=== PATIENT | male | born 1970 | race Caucasian/White ===

== ENCOUNTER 2023-11-22 15:06 | Outpatient (CLI) | payer OTHER | END 2023-11-22 15:07 | disposition home or self-care (01) | LOC: CSHMRI 15:06 | PROVIDERS: ATTEND Physician Assistant | DX: M25.522 Pain in left elbow (principal); S46.212A Strain of muscle, fascia and tendon of other parts of biceps, left arm, initial encounter; S56.512A Strain of other extensor muscle, fascia and tendon at forearm level, left arm, initial encounter; S53.432A Radial collateral ligament sprain of left elbow, initial encounter; S53.442A Ulnar collateral ligament sprain of left elbow, initial encounter ==